=== PATIENT | female | born 1985 | race Caucasian/White ===

== ENCOUNTER 2016-09-23 16:23 | Emergency (ER) | payer OTHER ==
[2016-09-23 17:28] VITALS: BMI 33.0
[2016-09-23 18:11] LABS: SQUAMOUS EPITHIAL < 1 /hpf (0-5); URINE BACTERIA RARE (<OCC); URINE BILIRUBIN NEGATIVE (NEGATIVE); URINE BLOOD NEGATIVE (NEGATIVE); URINE CLARITY CLEAR (Clear); URINE COLOR STRAW (YELLOW); URINE GLUCOSE (UA) NEG (Normal); URINE LEUKOCYTE ESTERASE NEG Leu/uL (Negative); URINE NITRATE NEGATIVE (NEGATIVE); URINE PROTEIN NEGATIVE (NEGATIVE); URINE UROBILINOGEN 0.2-1.0 mg/dL (0.2-1.0)
== END 2016-09-23 17:00 | disposition home or self-care (01) ==
LOC: H.EROB 16:23 → H.EROB2 16:23
DX: O47.03 False labor before 37 completed weeks of gestation, third trimester (principal); Z3A.31 31 weeks gestation of pregnancy

== ENCOUNTER 2016-11-18 23:13 | Emergency (ER) | payer OTHER ==
--- NOTE | 2016-11-18 23:28 | OBHP ---
Datetime: 09/23/2016 15:30 IP Adm Impression: , intrauterine ; No Active Labor; Intact Membranes IP Admit Plan: Discharge home Admit Comment, IP Provider: 30-year-old 001 at 31 weeks gestational age presents to the ED com plaining pelvic discomfort. Patient denies any contractions, vaginal bleeding, leakage of fluids. Pat ient reports good movement. Otherwise, patient without complaints. Past medical history none Past surgical history none Medications vitamins No known drug allergies Obstetrical history full-term normal spontaneous vaginal delivery 1 Social history no tobacco, no drugs, alcohol Physical exam: Deferred physical exam findings Assessment: 30-year-old 001 at 39 weeks gestational age. No evidence of labor at this time. Mate rnal well-being and well-being reassuring at this time. Plan: Discharged home. Follow-up in office as scheduled. Pelvic Type - PN: Adequate Extremities - PN: Normal Abdomen - PN: Normal Back - PN: Normal Breast - PN: Normal Lungs - PN: Normal Heart - PN: Normal Thyroid - PN: Normal Neurologic - PN: Normal HEENT - PN: Normal General - PN: Normal FHR - Baseline A Provider: 120s-130s Membranes, Provider: Intact Contraction Comments Provider: none Pool Provider: Negative IP Hx Assessment: The History has been Reviewed and is Current Vital Signs Provider: Reviewed; Within Normal Limits IP Chief Complaint: Maternal discomfort NICHD Variability Prov Fetus A: Moderate 6-25bpm NICHD Accel Fetus A IP Provider: 15X15 FHR Category Provider Fetus A: Category I NICHD Decel Fetus A IP Provider: None Dilatation, Provider: 0 Effacement, Provider: 0 Station, Provider: -4 Genitourinary Exam: Normal DTRs - PN: Normal
[2016-11-19 00:27] VITALS: BMI 34.7
[2016-11-19 01:25] LABS: RBC URINE 3 /hpf (0-3); URINE BACTERIA OCC (<OCC); URINE BILIRUBIN NEGATIVE (NEGATIVE); URINE BLOOD SMALL (NEGATIVE); URINE COLOR YELLOW (YELLOW); URINE GLUCOSE (UA) NEG (Normal); URINE KETONE NEGATIVE (NEGATIVE); URINE LEUKOCYTE ESTERASE NEG Leu/uL (Negative); URINE PROTEIN NEGATIVE (NEGATIVE); URINE UROBILINOGEN 0.2-1.0 mg/dL (0.2-1.0); WBC URINE 1 /hpf (0-5)
[2016-11-19 01:36] LABS: ALKALINE PHOSPHATASE 114 U/L (38-126); ALT/SGPT 19 U/L (9-52); AST/SGOT 16 U/L (14-36); BILIRUBIN,TOTAL 0.5 mg/dl (0.2-1.3); BLOOD UREA NITROGEN 9 mg/dl (7-17); CALCIUM 9.1 mg/dL (8.4-10.2); CARBON DIOXIDE 21 mmol/L (22-30); CHLORIDE 107 mmol/L (98-107); GFR AFRICAN-AMERICAN > 60; GLUCOSE,RANDOM 87 mg/dL (65-105); POTASSIUM 3.8 MMOL/L (3.6-5.0); SODIUM 137 mmol/l (132-148); TOTAL PROTEIN 7.1 G/DL (6.3-8.2); URIC ACID 4.4 mg/Dl (2.2-7.5)
[2016-11-19 01:38] LABS: HEMATOCRIT 38.3 % (34.0-47.0); MEAN CELL VOLUME 94.6 fl (81.0-99.0); MEAN CORPUSCULAR HEMOGLOBIN 32.4 pg (27.0-31.0); MEAN CORPUSCULAR HGB CONC 34.3 g/dL (33.0-37.0); RED CELL DISTRIBUTION WIDTH 13.6 % (11.5-14.5); WHITE BLOOD COUNT 8.2 K/uL (4.8-10.8)
[2016-11-19 01:45] LABS: PARTIAL THROMBOPLASTIN TIME 27.5 Seconds (25.6-37.1)
--- NOTE | 2016-11-19 02:20 | OBHP ---
Datetime: 11/19/2016 00:15 IP Adm Impression: Term, intrauterine IP Admit Plan: Observation/Evaluation Admit Comment, IP Provider: CHIEF COMPLAINT: LOF HPI: 31??yo at 39.5 wks GA with EDC by us + ROM, FM -: VB, CTX last U/S: 11/17/2016 last visit: 11/15/2016 GBS ? she shares that at 22:15, after performing squats, she felt a gush of fluid from her vagina. She w ent to sit on the toilet and allowed for fluid to expel. When she wiped, she noticed some bright red blood on the tissue. Since then, she has experienced clear fluid soaking her pad. 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 Carranza PMHX: negative PAST SX HX: 1996 tonsillectomy SOCIAL HX: denies: smoking, alcohol, illicit drugs MEDICATION: none ALLERGIES: PCN VITALS: 133/80 HR: 95 PE: General: pleasant, in no acute distress HEENT: normocephalic, PERRLA; AAOx3 Heart: no murmurs, regular rate and rhythm, S1, S2 normal. Lungs: clear to auscultation bilaterally, no wheezing Abdomen: gravid CVA: negative LOWER EXTREMITIES: negative for edema SSE/PELVIC EXN: no lesions; clear fluid noted MONITOR (normal) Variablity: moderate: 6-25 bpm ACC: 15x15 DECC: none FHR: 150 ASSESSMENT: 31 yo IUP at 39.5 wks with h/o 2009 at 39.5 wks observed for elevated blood pressure PLAN: preeclampsia labs drawn: u/a, cmp, cbc, fibrinogen, PT/T, ldh, uric acid weldon, pgy1 OB H addendum: Patient seen and examined by me with Dr. Weldon. Agree with above assessment and plan. Laboratory Laboratory evaluation within normal limits. Plan: Labor precautions Follow-up with Dr. Scheff scheduled. Pelvic Type - PN: Adequate Extremities - PN: Normal Abdomen - PN: Normal Back - PN: Normal Breast - PN: Not Done Lungs - PN: Normal Heart - PN: Normal Thyroid - PN: Not Done Neurologic - PN: Normal HEENT - PN: Normal General - PN: Normal Presentation-Admit: Vertex FHR - Baseline A Provider: 150 Membranes, Provider: Intact Contraction Comments Provider: irregular Comments, ACOG Physical Exam: Sterile speculum exam: No fluid in the vault with and without Valsalva . Positive mucous plug positive brownish blood Bimanual exam membranes were palpable along head Pool Provider: Negative EGA AdmitDate IP: 39.6 Vital Signs Provider: Reviewed; Within Normal Limits IP Chief Complaint: Suspected ruptured membranes NICHD Variability Prov Fetus A: Moderate 6-25bpm NICHD Accel Fetus A IP Provider: 15X15 FHR Category Provider Fetus A: Category I NICHD Decel Fetus A IP Provider: None Dilatation, Provider: 2 Effacement, Provider: 80 Genitourinary Exam: Normal DTRs - PN: Not Done
[2016-11-19 06:20] VITALS: BP 114/79; PULSE 95; RESP 17; TEMP 97.8
== END 2016-11-19 02:19 | disposition home or self-care (01) ==
LOC: H.EROB2 23:13
DX: O47.1 False labor at or after 37 completed weeks of gestation (principal); Z3A.39 39 weeks gestation of pregnancy

== ENCOUNTER 2016-11-19 11:02 | Inpatient (IN) | payer OTHER ==
[2016-11-19 11:27] VITALS: BMI 35.7
[2016-11-19] MEDS: Lactated Ringer's 1,000 ML IV SCH ×2 (11:30→12:00)
--- NOTE | 2016-11-19 11:44 | OBADHP ---
Datetime: 11/19/2016 11:15 Admit Comment, IP Provider: 31yo G4 P 1021 IUP at 39w c/o CTX since 7am...more painful; No SROM; no VB; +FM PNC: CP Dr Lamberto Carranza - PNC chart rev'd PMH: TMJ PSH: denies Allergy: PCN PSoH: denies smoking; ETOH; drugs POBH: x 1 / TOP x 2 PGYNH: no STD A: IUP at 39 early labor PLAN: admit to L_D; IVF; labor, pain management; delivery, meds for augmentation, and e xam Pelvic Type - PN: Adequate Extremities - PN: Normal Abdomen - PN: Normal Back - PN: Normal Breast - PN: Not Done Lungs - PN: Normal Heart - PN: Normal Thyroid - PN: Normal Neurologic - PN: Normal HEENT - PN: Normal General - PN: Normal Presentation-Admit: Vertex FHR - Baseline A Provider: 150 Membranes, Provider: Intact Contraction Comments Provider: 2-4m Pool Provider: Negative IP Hx Assessment: The History has been Reviewed and is Current IP Chief Complaint: Uterine contractions NICHD Variability Prov Fetus A: Moderate 6-25bpm NICHD Accel Fetus A IP Provider: 15X15 FHR Category Provider Fetus A: Category I NICHD Decel Fetus A IP Provider: None Dilatation, Provider: 4-5 Effacement, Provider: 90 Station, Provider: -1 Genitourinary Exam: Normal DTRs - PN: Normal EGA AdmitDate IP: 39.6 IP Adm Impression: Term, intrauterine ; Active labor; Intact Membranes IP Admit Plan: Admit to unit; Initiate labor protocol Datetime: 11/19/2016 00:15 Comments, ACOG Physical Exam: Sterile speculum exam: No fluid in the vault with and without Valsalva . Positive mucous plug positive brownish blood Bimanual exam membranes were palpable along head Vital Signs Provider: Reviewed; Within Normal Limits
[2016-11-19 12:11] LABS: BASO % 0.5 % (0.0-2.0); EOS % 0.4 % (0.0-4.0); LYMPH # 1.6 K/uL (1.0-4.3); LYMPH % 15.9 % (20.0-40.0); MEAN CELL VOLUME 94.5 fl (81.0-99.0); MEAN CORPUSCULAR HEMOGLOBIN 32.3 pg (27.0-31.0); MEAN CORPUSCULAR HGB CONC 34.2 g/dL (33.0-37.0); MEAN PLATELET VOLUME 10.2 fl (7.2-11.7); MONO # 0.4 K/uL (0.0-0.8); MONO % 4.3 % (0.0-10.0); NEUT % 78.9 % (50.0-75.0); NRBC % 0.2 % (0.0-0.0); RED CELL DISTRIBUTION WIDTH 13.4 % (11.5-14.5); WHITE BLOOD COUNT 10.2 K/uL (4.8-10.8)
[2016-11-19] MEDS ORDERED: Fentanyl/Bupivacaine HCl 250 ML EPI ONE (13:05)
[2016-11-19] MEDS ORDERED: Lactated Ringer's 1,000 ML IV SCH (13:15)
[2016-11-19] MEDS ORDERED: Lidocaine 1% Inj (20ml) ONE (13:53)
--- NOTE | 2016-11-19 17:07 | OBPN ---
Datetime: 11/19/2016 17:05 IP Progress Impression: Normal progression of labor; Reassuring heart rate IP Informed Consent Obtain: Vaginal Delivery IP Procedures: Artificial ROM IP Progress Plan: Continue present management Membranes, Provider: Ruptured Amniotic Fluid Color, Provider: Meconium, Light Contraction Comments Provider: q2-3min FHR - Baseline A Provider: 150s IP Progress Note Comment: AROM light Mec. Labor progressing well. Anticipate . Both MWB/FWB r eassuring at this time. Vital Signs Provider: Reviewed; Within Normal Limits NICHD Accel Fetus A IP Provider: 15X15 FHR Category Provider Fetus A: Category I NICHD Variability Prov Fetus A: Moderate 6-25bpm Dilatation, Provider: 10 Effacement, Provider: 100 Station, Provider: 1 NICHD Decel Fetus A IP Provider: None Datetime: 11/19/2016 11:15 Pool Provider: Negative Presentation-Admit: Vertex
[2016-11-19] MEDS ORDERED: Oxycodone/Acetaminophen 5/325 mg Tab PO PRN ×2 (19:55→20:33)
[2016-11-20] MEDS ORDERED: Benzocaine/Menthol SPRAY ONE (00:56)
[2016-11-20 06:34] LABS: HEMATOCRIT 33.9 % (34.0-47.0); MEAN CELL VOLUME 95.2 fl (81.0-99.0); MEAN CORPUSCULAR HEMOGLOBIN 32.3 pg (27.0-31.0); RED CELL DISTRIBUTION WIDTH 13.2 % (11.5-14.5); WHITE BLOOD COUNT 11.3 K/uL (4.8-10.8)
--- NOTE | 2016-11-20 09:27 | OBDS ---
DELIVERY PERSONNEL Delivery Doctor: Angela Muñoz MD [employer] W[employer] And Oiler: Quincy Mascorro Anesthesiologist: Meena MATERNAL INFORMATION Delivery Anesthesia: Local; Epidural Medications in Delivery: Pitocin Estimated Blood Loss (ml): 300 Placenta Cultured: No Maternal Complications: None Provider Comments: Normal spontaneous vaginal delivery. Patient delivered viable infant female with Apgars of 9 and 9 at one and 5 minutes respectively, p lacenta delivered spontaneously, laceration repaired as above, uterus firm and appropriately hemostat ic following delivery. No complications. Patient tolerated delivery and repair well. Estimated blood loss 300 mL LABOR SUMMARY EDC: 11/20/2016 00:00 No. Babies in Womb: 1 Attempted: No Labor Anesthesia: Epidural LABOR INFORMATION Reason for Induction: Not Applicable Onset of Labor: 11/19/2016 07:00 Complete Dilatation: 11/19/2016 16:00 Oxytocin: N/A Group B Beta Strep: Negative Antibiotics # of Doses: n/a Antibiotics Time of Last Dose: n/a Steroids Given: None Reason Steroids Not Administered: Not Applicable MEMBRANES Membranes Rupture Method: Artificial Rupture of Membranes: 11/19/2016 17:03 Length of Rupture (hrs): 0.57 Amniotic Fluid Color: Light Meconium Amniotic Fluid Amount: Small Amniotic Fluid Odor: Normal STAGES OF LABOR Stage 1 hrs: 9 Stage 1 min: 0 Stage 2 hrs: 1 Stage 2 min: 37 Stage 3 hrs: 0 Stage 3 min: 6 Total Time in Labor hrs: 10 Total Time in Labor min: 43 VAGINAL DELIVERY Episiotomy: None Laceration Extension: Second Degree Laceration Type: Perineal Laceration Repair: Yes Laceration Repair Note: Second degree midline peroneal laceration. Area infiltrated with 1% lidocain e. Laceration repair with 2. 0 repeat without complication. Patient tolerated repair well. Initial Vag Sponge Count: 5 Final Vag Sponge Count: 5 Initial Vag Sharps Count: 1 Final Vag Sharps Count: 1 Sponge Count Correct: Yes Sharps Count Correct: = count correct Count Comment: laps = 5 count correct BABY A INFORMATION Delivery Date/Time: 11/19/2016 17:37 Method of Delivery: Vaginal Born in Route : No : N/A Forceps: N/A Vacuum Extraction: N/A Shoulder Dystocia : No SHOULDER DYSTOCIA BABY A Infant Delivery Date/Time: 11/19/2016 17:37 PRESENTATION/POSITION BABY A Presentation: Cephalic Cephalic Presentation: Vertex Vertex Position: Left Occipital Anterior Breech Presentation: N/A PLACENTA INFORMATION BABY A Placenta Delivery Time : 11/19/2016 17:43 Placenta Method of Delivery: Spontaneous Placenta Status: Delivered SCORES BABY A Heart Rate 1 min: >100 bpm Resp Effort 1 min: Good Cry Reflex Irritability 1 min: Cough or Sneeze or Pulls Away Muscle Tone 1 min: Active Motion Color 1 min: Body [place], Extremities Blue Resuscitation Effort 1 min: Tactile Stimulation SCORE 1 MIN: 9 Heart Rate 5 min: >100 bpm Resp Effort 5 min: Good Cry Reflex Irritability 5 min: Cough or Sneeze or Pulls Away Muscle Tone 5 min: Active Motion Color 5 min: Body [place], Extremities Blue Resuscitation Effort 5 min: N/A SCORE 5 MIN: 9 INFANT INFORMATION BABY A Gestational Age at Delivery: 39.6 Gestational Status: Term Infant Outcome : Liveborn Condition : Stable Sex: Female IDENTIFICATION/MEDS BABY A ID Band Number: [id number] ID Band Location: Left Leg; Left Arm Vitamin K Given : Not Given Erythromycin Given: Not Given WEIGHT/LENGTH BABY A Infant Birthweight (gms): 4175 Weight (lb): 9 Infant Weight (oz): 3 Length Inches: 21.00 Length cms: 53.3 CORD INFORMATION BABY A No. Cord Vessels: 3 Nuchal Cord : N/A Nuchal Cord Other: n/a True Knot: n/a Infant Cord pH Baby Arterial: n/a Infant Cord pH Baby Venous: n/a Cord Blood Taken: Yes Banking/Donate Info: n/a Suction: Mouth; Nose ASSESSMENT BABY A Complications: None Physical Findings at Delivery: Within Normal Limits Respirations: Appears Normal Infant Care By: Subha Peterson Transferred To: Remains with Mother
--- NOTE | 2016-11-21 04:47 | OBPPN ---
Datetime: 11/20/2016 21:15 PP Pain Prov: Within normal limits PP Nausea Prov: Denies PP Flatus Prov: Yes PP BM Prov: Yes PP Breasts Prov: Normal PP Heart Prov: Normal PP Lungs Prov: Normal PP Abdomen/Uterus Prov: Normal PP Lochia Prov: Normal PP Vulva/Perineum Prov: Normal PP CVA Tenderness Prov: Normal PP Extremities Prov: Normal PP Progress Prov: Normal PP Impression Prov: Normal progression PP Plan Prov: Continue present management PP Progress Note Prov: Late entry for Nov 20 21:15pm H/H A; S/P day 1 PLAN: anticiapte discharge in AM Vital Signs Provider PP: Reviewed; Within Normal Limits
--- NOTE | 2016-11-21 07:18 | OBDCSUM ---
Datetime: 11/21/2016 07:15 Discharged to, Provider: Home Follow up at, Provider: Janelle Disch Instr Activity: Normal activity Disch Instr Diet: Regular Discharge Instructions, Provider: Routine instructions given Discharge Diagnosis, Provider: Term Delivered Follow up in weeks, Provider: 6w Disch Referrals: None Contraception discussed, Prov: Yes Disch Activity Restrictions: No sexual activity; Nothing in vagina - [place], tampons, douche
[2016-11-21 17:57] VITALS: BP 114/68; PULSE 76; RESP 20; TEMP 97.7; O2SAT 100
== END 2016-11-21 12:11 | disposition home or self-care (01) | DRG 775 ==
LOC: H.EROB2 11:02 → H.L&D 11:27 → H.OB/GYN 20:34
PROVIDERS: ADMIT Obstetrics & Gynecology; ATTEND Obstetrics & Gynecology
PROC: 10E0XZZ Delivery of Products of Conception, External Approach (ICD-10-PCS; principal; 2016-11-19)
PROC: 0KQM0ZZ Repair Perineum Muscle, Open Approach (ICD-10-PCS; 2016-11-19)
PROC: 4A1HXCZ Monitoring of Products of Conception, Cardiac Rate, External Approach (ICD-10-PCS; 2016-11-19)
DX: O77.0 Labor and delivery complicated by meconium in amniotic fluid (principal); O70.1 Second degree perineal laceration during delivery; Z37.0 Single live birth; Z3A.39 39 weeks gestation of pregnancy